=== PATIENT | female | born 1975 | race Caucasian/White ===

== ENCOUNTER 2019-08-31 14:29 | Emergency (ER) | payer OTHER, MEDICAID, SELFPAY ==
--- NOTE | ~2019-08-31 | XR_ITS ---
EXAMINATION: XR knee LT min 4V DATE: 08/31/2019 15:07 INDICATION: Left knee pain post fall TECHNIQUE: Anteroposterior, 2 oblique and crosstable lateral views of the left knee were obtained COMPARISON: None. FINDINGS: Alignment is normal. No fracture. Small marginal osteophytes in the medial and patellofemoral compar tments consistent with at least mild osteoarthritis. No joint effusion/layering lipohemarthrosis. Sof t tissues are unremarkable. IMPRESSION: 1. No left knee joint effusion or acute osseous abnormality. Reviewed, dictated and finalized at location A.
[2019-08-31 14:33] VITALS: BP 103/61; PULSE 73; RESP 16; TEMP 36.7; O2SAT 99
--- NOTE | 2019-08-31 15:49 | ED.LOWEXIN ---
HPI - Extremity Injury (Lower) General Chief Complaint: Extremity Injury, Lower <TY Dotson Last Filed: 08/31/19 15:59> Stated Complaint: knee pain <TY Dotson Last Filed: 08/31/19 15:59> Time Seen by Provider: 08/31/19 14:46 <TY Dotson Last Filed: 08/31/19 15:59> Source: patient <TY Dotson Last Filed: 08/31/19 15:59> Mode of arrival: wheelchair <TY Dotson Last Filed: 08/31/19 15:59> Limitations: no limitations <TY Dotson Last Filed: 08/31/19 15:59> History of Present Illness HPI Narrative: This is a 43-year-old female that presents the emergency department for left knee pain since an injury last night. Reports she was walking and the knee twisted funny. Reports feeling a pop. Reports since she has had pain on the medial side of the knee. Reports she has had previous surgery on this knee. Denies decreased range of motion or numbness. <TY Dotson Last Filed: 08/31/19 15:59> Related Data Home Medications: Home Medications Medication Instructions Recorded Confirmed No Home Medications 08/31/19 08/31/19 <TY Dotson Last Filed: 08/31/19 15:59> Allergies/Adverse Reactions: Allergies Allergy/AdvReac Type Severity Reaction Status Date / Time cephalexin [From Keflex] Allergy Hives Verified 08/31/19 14:35 <TY Dotson Last Filed: 08/31/19 15:59> Review of Systems Review of Systems: Narrative: CONSTITUTIONAL: Denies fever MUSCULOSKELETAL: Reports joint pain, and myalgia. NEUROLOGIC: Denies numbness <TY Dotson Last Filed: 08/31/19 15:59> All systems reviewed & are unremarkable except as noted in HPI and below <TY Dotson Last Filed: 08/31/19 15:59> PMFSH Past Medical History Medical History: Medical History (Updated 08/31/19 @ 15:57 by Adriana Cm PA-C) No active medical problems <Adriana Cm PA-C - Last Filed: 08/31/19 15:59> Social History Social History: Social History (Updated 08/31/19 @ 15:54 by Adriana Cm PA-C) Substance use: never <Adriana Cm PA-C - Last Filed: 08/31/19 15:59> Exam Narrative: Exam Narrative: GENERAL: Well-appearing, well-nourished, and in no acute distress. HEAD: Normocephalic, atraumatic. EYES: EOMI. EXTREMITIES: Normal range of motion. No edema or obvious deformity. Normal sensation. Normal DP pulses SKIN: Warm, dry, no rash. NEURO: No focal deficits. Alert and oriented x3. PSYCH: Normal mood and affect <Adriana Cm PA-C - Last Filed: 08/31/19 15:59> Course Vital Signs Vital signs: Vital Signs Temperature 98.1 F 08/31/19 14:33 Pulse Rate 73 08/31/19 14:33 Respiratory Rate 16 08/31/19 14:33 Blood Pressure 103/61 08/31/19 14:33 Pulse Oximetry 99 08/31/19 14:33 Temperature 98.1 F 08/31/19 14:33 Pulse Rate 73 08/31/19 14:33 Respiratory Rate 16 08/31/19 14:33 Blood Pressure 103/61 08/31/19 14:33 Pulse Oximetry 99 08/31/19 14:33 <Adriana Cm PA-C - Last Filed: 08/31/19 15:59> Vital Signs Temperature 98.1 F 08/31/19 14:33 Pulse Rate 73 08/31/19 14:33 Respiratory Rate 16 08/31/19 14:33 Blood Pressure 103/61 08/31/19 14:33 Pulse Oximetry 99 08/31/19 14:33 Temperature 98.1 F 08/31/19 14:33 Pulse Rate 73 08/31/19 14:33 Respiratory Rate 16 08/31/19 14:33 Blood Pressure 103/61 08/31/19 14:33 Pulse Oximetry 99 08/31/19 14:33 <Camila Moseley MD - Last Filed: 08/31/19 16:40> MDM - Extremity Injury (Lower) MDM Narrative Medical decision making narrative: Patient presents emergency department for left knee pain after an injury last night. Left knee x-rays without acute osseous findings. Patient placed in knee immobilizer and given crutches. She is to follow-up with orthopedics. Patient was given warnings to return to the ER <Domenico
[2019-08-31] MEDS: IBUPROFEN 600 MG TABLET PO (15:50)
== END 2019-08-31 16:29 | disposition home or self-care (01) ==
PROVIDERS: Emergency Provider General Practice
DX: M25.562 Pain in left knee (principal)
CPT/HCPCS: 73564; 99283; A9270

== ENCOUNTER 2019-09-21 07:30 | Outpatient (CLI) | payer OTHER, MEDICAID, SELFPAY ==
--- NOTE | ~2019-09-21 | MR_ITS ---
EXAMINATION: MR knee LT wo con DATE: 09/21/2019 09:33 INDICATION: Left knee pain post fall TECHNIQUE: Magnetic resonance imaging (MRI) of the left knee was performed without intravenous contra st. Sequences included coronal PD-weighted FSE, coronal PD-weighted FS FSE, sagittal T2-weighted FSE , sagittal PD-weighted FS FSE and axial PD weighted fat saturated FSE. COMPARISON: Left knee radiographs dated 09/06/2019 FINDINGS: Medial compartment: Medial meniscus is normal. Subtle linear low signal in the cartilage overlying the posterior horn of the medial meniscus suggesting partial thickness chondral fissure without degenerative subchondral ch anges at the central weightbearing medial femoral condyle. Lateral compartment: Lateral meniscus is normal. Articular cartilage is normal. Patellofemoral compartment: Partial-thickness chondral ulceration and fissuring with minimal irregularity to the underlying artic ular cortex along the medial patellar facet. Additional partial thickness chondral fissuring along th e cephalad rim of the lateral trochlea. Ligaments and tendons: Anterior and posterior cruciate ligaments are normal. The medial collateral ligament and fibular kashif ateral ligament complex are normal. The patellar tendon and quadriceps tendon are normal. There is he terotopic ossification along the patellar insertion of the medial patellofemoral retinaculum consiste nt with likely chronic tear. The visualized medial and lateral hamstring tendons as well as the iliot ibial band are normal. Fluid: Physiologic amount of fluid in the joint space. No loose osteochondral bodies identified. Osseous/other: There is marrow edema without discrete fracture line along the medial nonarticular side of the medial trochlea in a typical location for a bone contusion related to patellar dislocation/relocation injur y pattern. No fracture or pathologic marrow replacing process. Band of scarring likely related to meenu or arthroscopy tract extending anteroposteriorly across the medial side of Hoffa's fat pad. Tiny focu s of susceptibility artifact in the lateral recess cephalad to the body of the lateral meniscus likel y related to reported prior surgery. IMPRESSION: 1. Bone contusion lateral nonarticular side of the lateral trochlea suggesting bone contusion related to prior patellar dislocation/relocation injury. Heterotopic ossification along the medial side of t he patella consistent with a more chronic medial patellofemoral retinacular injury. 2. Mild osteoarthritis with moderate grade chondromalacia in the medial and patellofemoral compartmen ts. Reviewed, dictated and finalized at location A. IMPRESSION: 1. Bone contusion lateral nonarticular side of the lateral trochlea suggesting bone contusion related to prior patellar dislocation/relocation injury. Heterot opic ossification along the medial side of the patella consistent with a more c hronic medial patellofemoral retinacular injury. 2. Mild osteoarthritis with moderate grade chondromalacia in the medial and pat ellofemoral compartments.
== END 2019-09-21 07:31 | disposition home or self-care (01) ==
PROVIDERS: Visit Provider Orthopaedic Surgery
DX: S89.90XA Unspecified injury of unspecified lower leg, initial encounter (principal); S80.02XA Contusion of left knee, initial encounter; M17.12 Unilateral primary osteoarthritis, left knee; M94.262 Chondromalacia, left knee
CPT/HCPCS: 73721

== ENCOUNTER 2019-11-30 16:16 | Outpatient (CLI) | payer OTHER, MEDICAID, SELFPAY ==
--- NOTE | ~2019-11-30 | XR_ITS ---
EXAMINATION: XR knee LT 3V DATE: 11/30/2019 17:06 INDICATION: Left knee pain. TECHNIQUE: 3 views of left knee were obtained. COMPARISON: Left knee radiographs 09/06/2019 FINDINGS: Bone alignment is normal. No fracture. There is mild tricompartmental osteoarthritis. No kn ee joint effusion. There is a 5 mm loose body medial to patella. IMPRESSION: 1. Mild left knee osteoarthritis. 2. Left knee joint loose body. Reviewed, dictated and finalized at location A.
--- NOTE | ~2019-11-30 | XR_ITS ---
EXAMINATION: XR foot LT 2V DATE: 11/30/2019 17:06 INDICATION: Plantar fasciitis. TECHNIQUE: 2 views of left foot were obtained. COMPARISON: None. FINDINGS: Bone alignment is normal. No fracture. There is mild osteoarthritis of talonavicular joint and first metatarsophalangeal joint. There are enthesophytes at the posterior and plantar aspects of calcaneal tuberosity. IMPRESSION: 1. Mild polyarticular osteoarthritis. Reviewed, dictated and finalized at location A.
--- NOTE | ~2019-11-30 | XR_ITS ---
EXAMINATION: XR ankle LT 2V DATE: 11/30/2019 17:06 INDICATION: Plantar fasciitis. TECHNIQUE: 2 views of left ankle were obtained. COMPARISON: None. FINDINGS: Bone alignment is normal. No fracture. There is mild osteoarthritis of talonavicular joint. There are enthesophytes at the posterior and plantar aspects of calcaneal tuberosity. IMPRESSION: 1. Mild osteoarthritis of talonavicular joint. Reviewed, dictated and finalized at location A.
--- NOTE | ~2019-11-30 | XR_ITS ---
EXAMINATION: XR hip BI 2V w AP pelvis DATE: 11/30/2019 17:06 INDICATION: Left hip pain. TECHNIQUE: Anteroposterior and frog-leg views of the pelvis and 3 views of each hip were obtained. COMPARISON: None. FINDINGS: Bone alignment is normal. No fracture. There is mild osteoarthritis of the hips. IMPRESSION: 1. Mild osteoarthritis of the hips. Reviewed, dictated and finalized at location A.
--- NOTE | ~2019-11-30 | XR_ITS ---
EXAMINATION: XR lumbar spine 2-3V DATE: 11/30/2019 17:06 INDICATION: Low back pain. TECHNIQUE: 2 views of lumbar spine were obtained. COMPARISON: None. FINDINGS: There is 6 degrees levocurvature of lumbar spine. Vertebral body heights and intervertebral disc heights are normal. There is multilevel mild facet joint osteoarthritis. Surgical clips in the right upper quadrant are likely from cholecystectomy. IMPRESSION: 1. Mild lumbar spondylosis. Reviewed, dictated and finalized at location A. IMPRESSION: 1. Mild lumbar spondylosis.
== END 2019-11-30 16:17 | disposition home or self-care (01) ==
PROVIDERS: PCP Family Medicine; Visit Provider Family Medicine
DX: M72.2 Plantar fascial fibromatosis (principal); M16.12 Unilateral primary osteoarthritis, left hip; M47.896 Other spondylosis, lumbar region; M19.072 Primary osteoarthritis, left ankle and foot; M17.12 Unilateral primary osteoarthritis, left knee; M23.42 Loose body in knee, left knee
CPT/HCPCS: 72100; 73521; 73562; 73600; 73620

== ENCOUNTER 2019-12-01 17:57 | Outpatient (CLI) | payer OTHER, MEDICAID, SELFPAY ==
[2019-12-01 18:18] LABS: Basophils Absolute Auto 0.1 K/mm3 (0.0-0.1); Basophils Percent Auto 0.7 % (0.2-1.2); Eosinophils Absolute Auto 0.2 K/mm3 (0-0.3); Eosinophils Percent Auto 2.2 % (0-4.4); Hematocrit 38.6 % (37.0-47.0); Hemoglobin 13.3 g/dL (12.0-15.0); Immature Granulocyte Absolute 0.02 K/mm3 (0.00-0.031); Immature Granulocyte Percent A 0.2 % (0-0.5); Lymphocytes Percent Auto 20.8 % (18.3-44.2); Mean Corpuscular HGB Conc 34.5 g/dl (32-36); Mean Corpuscular Hemoglobin 31.7 pg (26-34); Mean Corpuscular Volume 91.9 fl (80-100); Mean Platelet Volume 9.5 fl (7.4-10.4); Monocytes Absolute Auto 0.7 K/mm3 (0.1-0.6); Monocytes Percent Auto 8.2 % (2.6-8.5); Neutrophils Absolute Auto 5.5 K/mm3 (1.3-6.7); Neutrophils Percent Auto 67.9 % (45.5-73.1); Platelet Count Result 344 k/mm3 (150-375); Red Cell Distribution Width 12.5 % (11.5-14.5); White Blood Count 8.2 K/mm3 (4.5-10.0)
[2019-12-01 18:26] LABS: Hemoglobin A1C 5.1 % (<5.7)
[2019-12-01 18:30] LABS: Cholesterol 170 mg/dL (0-200); HDL Direct 32 mg/dL; Triglycerides 110 mg/dL (<150)
[2019-12-01 18:42] LABS: LDL Cholesterol Direct 113 mg/dL
[2019-12-01 18:56] LABS: Iron 48 ug/dL (37-170)
[2019-12-01 19:02] LABS: Thyroid Stimulating Hormone 0.446 uIU/mL (0.465-4.680)
[2019-12-01 19:05] LABS: Percent Iron Saturation 17 % (20-50)
[2019-12-01 19:11] LABS: HIV 1/2 Ab P24 Ag Result Negative (Negative)
[2019-12-01 19:13] LABS: Free T4 Free Thyroxine 1.03 ng/mL (0.78-2.19)
[2019-12-01 19:33] LABS: Hepatitis B Core IgM Result Negative (Negative)
[2019-12-01 19:37] LABS: Folic Acid 7.8 ng/mL (2.76->20)
[2019-12-01 19:46] LABS: Hepatitis C Virus Antibody Negative (Negative)
== END 2019-12-01 17:58 | disposition home or self-care (01) ==
PROVIDERS: PCP Family Medicine; Visit Provider Family Medicine
DX: G62.9 Polyneuropathy, unspecified (principal)
CPT/HCPCS: 36415; 80061; 82607; 82746; 83036; 83540; 83550; 84439; 84443; 85025; 86703; 86705; 86803; G0432

== ENCOUNTER 2020-01-11 08:16 | Emergency (ER) | payer OTHER, MEDICAID, SELFPAY ==
[2020-01-11 08:29] VITALS: BP 110/82; PULSE 62; RESP 16; TEMP 36.2; O2SAT 100
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
[2020-01-11] MEDS: KETOROLAC (*BKC) 60 MG/2 ML VIAL IM (08:48)
--- NOTE | 2020-01-11 12:39 | PHAR ---
COMMENT ENTERED IN ER Give just before or with first dose of antibiotics. FOR DEXAMETHASONE ORDER. ANTIBIOTIC NOT ENTERED. CALLED MD AND CLARIFIED HE DID NOT WANT ANTIBIOTIC, DIDN'T INTEND FOR THE COMMENT ON DEXAMTHASONE
== END 2020-01-11 09:15 | disposition home or self-care (01) ==
PROVIDERS: Emergency Provider Emergency Medicine; PCP Family Medicine
DX: M54.42 Lumbago with sciatica, left side (principal); E05.90 Thyrotoxicosis, unspecified without thyrotoxic crisis or storm; M06.9 Rheumatoid arthritis, unspecified; F17.200 Nicotine dependence, unspecified, uncomplicated
CPT/HCPCS: 96372; 99284; J1100; J1885